=== PATIENT | female | born 1965 | race Caucasian/White ===

== ENCOUNTER 2020-01-18 12:49 | Emergency (ER) | payer BC ==
[~2020-01-18] VITALS: Ht 160 cm; Wt 72.7 kg
--- OUTSIDE RECORDS SUMMARY | 2020-01-18 12:52 | XMS REPORT | Summary of Care ---
Author Author [facility] Address [address] [place] [address] Phone Unavailable Care Team Providers Care Superintendent Storage Area Name Role Phone AYLA Phillips, CM Unavailable Unavailable FRANKY Phillips, AMANDA Unavailable Unavailable EMMA OQUENDO, LORRAINE Unavailable Unavailable KEVIN Phillips, GERSON Unavailable Unavailable VIRGILIO Phillips, COLTON Unavailable Unavailable QUAN Phillips, NATALIE Unavailable Unavailable AYLA FONG, CM Chung Unavailable Unavailable QUAN FONG, NATALIE Romeo Unavailable Unavailable VIRGILIO FONG, COLTON Chung Unavailable Unavailable SAMSON FOGN [place], REBECCA Salvador Unavailable Unavailable MAYCOL THRASHER, CHIARA Unavailable Unavailable KEVIN FONG, GERSON W Unavailable Unavailable Unavailable Unavailable Functional Status Name Dates Details Functional status health issues are not documented Status: Name Dates Details Cognitive status health issues are not documented Status: Problems Name Dates Details Gastrocnemius muscle tear (844.8, S86.119A) Status: Active Screen for colon cancer (V76.51, Z12.11) Status: Active Chronic back pain greater than 3 months duration (724.5, M54.9) Status: Active Abnormal EKG (794.31, R94.31) Status: Active Sebaceous hyperplasia of face (706.8, L73.8) Status: Active Solar lentigo (709.09, L81.4) Status: Active Age-related facial wrinkles (701.8, L90.8) Status: Active Ingrown toenail (703.0, L60.0) Status: Active Encounter for diabetic foot exam (250.00, E11.9) Status: Active Acid reflux (530.81, K21.9) Status: Active Abdominal bloating (787.3, R14.0) Status: Active Dense breast tissue on mammogram (793.89, R92.2) Status: Active Palpitations (785.1, R00.2) Status: Active Dyspareunia, female (625.0, N94.10) Status: Active Immunity status testing (V72.61, Z01.84) Status: Active BMI 24.0-24.9, adult (V85.1, Z68.24) Status: Active Fatty liver (571.8, K76.0) Status: Active Paresthesia (782.0, R20.2) Status: Active Persistent indigestion (536.8, K30) Status: Active Chronic constipation (564.00, K59.09) Status: Active Adnexal mass (625.8, N94.89) Status: Active Cystocele Status: Active Rectocele (618.04, N81.6) Status: Active Urinary hesitancy (788.64, R39.11) Status: Active Low back pain (724.2, M54.5) Status: Active Left cervical radiculopathy (723.4, M54.12) Status: Active Other hyperlipidemia (272.4, E78.49) Status: Active Other gastritis without hemorrhage (535.40, K29.60) Status: Active Need for influenza vaccination (V04.81, Z23) Status: Active Trigger middle finger of right hand (727.03, M65.331) Status: Active Trigger ring finger of right hand (727.03, M65.341) Status: Active Hyperlipemia, mixed (272.2, E78.2) Status: Active Well woman exam with routine gynecological exam (V72.31, Z01.419) Status: Active Cervical radiculopathy (723.4, M54.12) Status: Active Cubital tunnel syndrome on left (354.2, G56.22) Status: Active Carpal tunnel syndrome of left wrist (354.0, G56.02) Status: Active De Quervain's tenosynovitis, left (727.04, M65.4) Status: Active Type 2 diabetes mellitus without complication, without long-term current use of insulin (250.00, E11.9) Status: Active Malignant neoplasm of right breast in female, estrogen receptor positive, unspecified site of breast (174.9, C50.911) Status: Active Abnormal alkaline phosphatase test (790.5, R74.8) Status: Active ADD (attention deficit disorder) (314.00, F98.8) Status: Active Major depressive disorder in remission (296.25, F32.5) Status: Active Dental infection (522.4, K04.7) Status: Active Medications Name Dates Details Lisinopril 5 MG Oral Tablet TAKE 1 TABLET DAILY DIRECTED Quantity: 90 CM AGUILA M.D. * Start : 25-Nov-2014 Active BD Pen Needle Iza U/F 32G X 4 MM USE DIRECTED ONCE A DAY with Saxenda injection * Quantity: 1 Refills: 3 AMANDA WILKINS M.D. * Start : 04-Aug-2014 Active 100 Unit Box Atorvastatin Calcium 40 MG Oral Tablet TAKE ONE TABLET BY MOUTH EVERY NIGHT AT BEDTIME * Quantity: 90 Refills: 1 AMANDA WILKINS M.D. * Start : 08-Mar-2017 Active Linzess 145 MCG Oral Capsule TAKE 1 CAPSULE DAILY * Quantity: 30 Refills: 0 LORRAINE CARTER APRN * Start : 31-Jul-2017 Active tiZANidine HCl - 4 MG Oral Capsule TAKE 2 CAPSULE BEDTIME * Quantity: 180 Refills: 1 CM AGUILA M.D. * Start : 23-Aug-2017 Active B-12 TR 1000 MCG Oral Tablet Extended Release TAKE 1 TABLET DAILY DIRECTED. * Refills: 0 AMANDA WILKINS M.D. * Start : 24-Nov-2017 Active OneTouch Verio In Vitro Strip CHECK TWICE A DAY * Quantity: 2 Refills: 0 AMANDA WILKINS M.D. * Start : 24-Nov-2017 Active 100 Strip Box OneTouch Delica Lancets 33G Check BG 2x a day * Quantity: 200 Refills: 4 AMANDA WILKINS M.D. * Start : 24-Nov-2017 Active Synjardy XR 12.5-1000 MG Oral Tablet Extended Release 24 Hour TAKE 1 TABLET BY MOUTH DAILY; MAY INCREASE TO 2 TABLETS A DAY DIRECTED * Quantity: 60 Refills: 4 AMANDA WILKINS M.D. * Start : 24-Nov-2017 Active Saxenda 18 MG/3ML Subcutaneous Solution Pen-injector INJECT 3MG SUBCUTANEOUSLY ONCE A DAY * Quantity: 3 Refills: 1 AMANDA WILKINS M.D. * Start : 24-Nov-2017 Active 5 x 3 ML Pen Pen [place] 32G X 4 MM 1 a day * Quantity: 100 Refills: 4 AMANDA WILKINS M.D. * Start : 24-Nov-2017 Active Replens Vaginal Gel APPLY NEEDED. * Quantity: 12 Refills: 2 NATALIE GLASS M.D. * Start : 10-Jan-2018 Active 8 x 6.7 GM Box metroNIDAZOLE 0.75 % Vaginal Gel INSERT 1 APPLICATOR Bedtime x 5 nights * Quantity: 1 Refills: 0 NATALIE GLASS M.D. * Start : 16-Jan-2018 Active 70 GM Tube Letrozole 2.5 MG Oral Tablet TAKE 1 TABLET DAILY. * Refills: 0 AMANDA WILKINS M.D. * Start : 21-May-2018 Active Gabapentin 300 MG Oral Capsule 1 capsule tid * Refills: 0 AMANDA WILKINS M.D. * Start : 21-May-2018 Active Venlafaxine HCl ER 75 MG Oral Capsule Extended Release 24 Hour TAKE 3 CAPSULES DAILY * Quantity: 270 Refills: 2 GERSON BROWN M.D. * Start : 01-Jul-2019 Active buPROPion HCl ER (XL) 150 MG Oral Tablet Extended Release 24 Hour TAKE 1 TABLET DAILY. * Quantity: 90 Refills: 3 GERSON BROWN M.D. * Start : 01-Jun-2019 Active Vyvanse 60 MG Oral Capsule TAKE ONE CAPSULE BY MOUTH DAILY * Quantity: 30 Refills: 0 GERSON BROWN M.D. * Start : 17-Oct-2019 Active Ondansetron HCl - 8 MG Oral Tablet TAKE 1 TABLET Every twelve hours * Quantity: 15 Refills: 0 COLTON POOLE M.D. * Start : 05-Apr-2019 Active Ibuprofen 800 MG Oral Tablet TAKE 1 TABLET 3 TIMES DAILY PRN * Quantity: 270 Refills: 1 CM AGUILA M.D. * Start : 28-Jun-2019 Active Pantoprazole Sodium 20 MG Oral Tablet Delayed Release TAKE 1 TABLET DAILY. * Quantity: 90 Refills: 1 CM AGUILA M.D. * Start : 28-Jun-2019 Active Ondansetron HCl - 8 MG Oral Tablet TAKE 1 TABLET Every twelve hours * Quantity: 15 Refills: 0 COLTON POOLE M.D. * Start : 08-Aug-2019 Active Colace 100 MG Oral Capsule TAKE 1 CAPSULE 3 TIMES DAILY. * Quantity: 45 Refills: 0 JANE POOLE M.D.TON * Start : 08-Aug-2019 Active Allergies and Adverse Reactions Name Dates Details No Known Drug Allergies (Allergy) Status: Active Past Medical History Name Dates Details Chronic constipation (564.00, K59.09) Status: Active History of Depression (311, F32.9) Status: Resolved History of Diabetes mellitus, type 2 (250.00, E11.9) Status: Resolved History of fatty infiltration of liver (V12.79, Z87.19) Status: Resolved History of high cholesterol (V12.29, Z86.39) Status: Resolved History of malignant neoplasm of female breast (V10.3, Z85.3) Status: Resolved Procedures Procedure Dates Details History of Cholecystectomy Laparoscopic Completed History of Hallux Valgus (Bunion) Correction Completed History of Section Completed History of Tonsillectomy Completed History of Breast biopsy Completed History of Carpal tunnel surgery Completed History of Lumpectomy Completed History of Mastopexy Completed Immunization Name Dates Details Pneumococcal polysaccharide vaccine, 23 valent on: 03-Oct-2013 Fluzone Quadrivalent 0.5 ML Intramuscular Suspension Lot #: [id number] on: 24-Jul-2014 Influenza Lot #: [id number] on: 05-Jun-2015 Fluzone Quadrivalent 0.5 ML Intramuscular Suspension Lot #: [id number] on: 30-Jun-2017 Fluzone Quadrivalent 0.5 ML Intramuscular Suspension Prefilled Syringe Lot #: [id number] on: 25-Jun-2018 Fluzone Quadrivalent 0.5 ML Intramuscular Suspension Lot #: [id number] on: 28-Jun-2019 Family History Name Dates Details Family history of pancreatitis (V18.59, Z83.79) Comments: Family History Status: Active Name Dates Details Family history of Open spina bifida with hydrocephalus (741.00, Q05.4) Status: Active Name Dates Details Family history of hyperlipidemia (V18.19, Z83.438) Status: Active Family history of pancreatitis (V18.59, Z83.79) Status: Active Name Dates Details Family history of hypothyroidism (V18.19, Z83.49) Status: Active Social History Name Dates Details - Status: Name Dates Details Never smoker Vital Signs Date Test Result Details No Known Vitals to report Results Date Description Value Details Results not documented Plan of Care Name Dates Details Planned Observations Planned Goals not documented Planned Encounters Appointment; CM AGUILA M.D. On: 22-Nov-2019 13:45 Appointment; AMANDA WILKINS M.D. On: 29-Nov-2019 9:00 Instructions Name Dates Details Instructions not documented Encounters Appointment; BERNARDO LASSITER M.D. Encounter Diagnosis: Problem not documented On: 24-Nov-2017 9:20 Appointment; AMANDA WILKINS M.D. Encounter Diagnosis: Problem not documented On: 24-Nov-2017 11:00 Appointment; AMIRA HE RD Encounter Diagnosis: Problem not documented On: 27-Nov-2017 10:00 Appointment; GERSON BROWN M.D. Encounter Diagnosis: Problem not documented On: 05-Dec-2017 11:00 Appointment; BRANDY WASHINGTON M.D. Encounter Diagnosis: Problem not documented On: 10-Jan-2018 10:00 Appointment; NATALIE GLASS M.D. Encounter Diagnosis: Problem not documented On: 10-Jan-2018 10:00 Appointment; AMANDA WILKINS M.D. Encounter Diagnosis: Problem not documented On: 25-Jan-2018 10:00 Appointment; GERSON BROWN M.D. Encounter Diagnosis: Problem not documented On: 30-Jan-2018 10:00 Appointment; GERSON BROWN M.D. Encounter Diagnosis: Problem not documented On: 02-Apr-2018 11:30 Appointment; AMANDA WILKINS M.D. Encounter Diagnosis: Problem not documented On: 21-May-2018 10:00 Appointment; GERSON BROWN M.D. Encounter Diagnosis: Problem not documented On: 05-Jun-2018 10:30 Appointment; AMANDA WILKINS M.D. Encounter Diagnosis: Problem not documented On: 17-Aug-2018 11:00 Appointment; GERSON BROWN M.D. Encounter Diagnosis: Problem not documented On: 01-Oct-2018 9:00 Appointment; CM AGUILA M.D. Encounter Diagnosis: Problem not documented On: 16-Oct-2018 8:45 Appointment; AMANDA WILKINS M.D. Encounter Diagnosis: Problem not documented On: 12-Dec-2018 9:00 Appointment; GERSON BROWN M.D. Encounter Diagnosis: Problem not documented On: 21-Dec-2018 8:30 Appointment; COLTON POOLE M.D. Encounter Diagnosis: Problem not documented On: 10-Jan-2019 8:30 Appointment; NATALIE GLASS M.D. Encounter Diagnosis: Problem not documented On: 11-Jan-2019 10:45 Appointment; REBECCA DAVIES M.D. Encounter Diagnosis: Problem not documented On: 23-Jan-2019 14:45 Appointment; COLTON POOLE M.D. Encounter Diagnosis: Problem not documented On: 14-Mar-2019 9:30 Appointment; TAQUERIA FUNES Encounter Diagnosis: Problem not documented On: 22-Mar-2019 11:30 Appointment; REBECCA DAVIES M.D. Encounter Diagnosis: Problem not documented On: 27-Mar-2019 13:45 Appointment; AMANDA WILKINS M.D. Encounter Diagnosis: Problem not documented On: 28-Mar-2019 13:00 Appointment; GERSON BROWN M.D. Encounter Diagnosis: Problem not documented On: 29-Apr-2019 9:00 Appointment; CM AGUILA M.D. Encounter Diagnosis: Problem not documented On: 28-Jun-2019 16:00 Appointment; GERSON BROWN M.D. Encounter Diagnosis: Problem not documented On: 01-Jul-2019 9:00 Appointment; COLTON POOLE M.D. Encounter Diagnosis: Problem not documented On: 02-Jul-2019 10:30 Appointment; COLTON POOLE M.D. Encounter Diagnosis: Problem not documented On: 16-Jul-2019 8:30 Appointment; AMANDA WILKINS M.D. Encounter Diagnosis: Problem not documented On: 19-Jul-2019 9:00 Appointment; CM AGUILA M.D. Encounter Diagnosis: Problem not documented On: 22-Jul-2019 11:30 Appointment; COLTON POOLE M.D. Encounter Diagnosis: Problem not documented On: 08-Aug-2019 13:00 Appointment; GERSON BROWN M.D. Encounter Diagnosis: Problem not documented On: 13-Aug-2019 11:00 Appointment; COLTON POOLE M.D. Encounter Diagnosis: Problem not documented On: 22-Aug-2019 8:30 Appointment; COLTON POOLE M.D. Encounter Diagnosis: Problem not documented On: 03-Oct-2019 10:30
--- OUTSIDE RECORDS SUMMARY | 2020-01-18 12:52 | XMS REPORT | Summary of Care ---
Author Author [facility] Address [address] [place] [address] Phone Unavailable Care Team Providers Care Team Assembler Name Role Phone AYLA Phillips, CM Unavailable Unavailable FRANKY Phillips, AMANDA Unavailable Unavailable EMMA N.PFernando, LORRAINE Unavailable Unavailable KEVIN Phillips, GERSON Unavailable Unavailable VIRGILIO Phillips, COLTON Unavailable Unavailable QUAN Phillips, NATALIE Unavailable Unavailable AYLA FONG, CM Chung Unavailable Unavailable KEVIN FONG, GERSON W Unavailable Unavailable QUAN FONG, NATALIE Romeo Unavailable Unavailable VIRGILIO FONG, COLTON Chung Unavailable Unavailable SAMSON FONG [place], REBECCA Salvador Unavailable Unavailable MAYCOL THRASHER, CHIARA Unavailable Unavailable Unavailable Unavailable Functional Status Name [...] Active Chronic constipation (564.00, K59.09) Status: Active Cystocele Status: Active Rectocele (618.04, N81.6) Status: Active Adnexal mass (625.8, N94.89) Status: Active Urinary hesitancy (788.64, R39.11) Status: [...] Active Hyperlipemia, mixed (272.2, E78.2) Status: Active Cubital tunnel syndrome on left (354.2, G56.22) Status: Active Carpal tunnel syndrome of left wrist (354.0, G56.02) Status: Active De Quervain's tenosynovitis, left (727.04, M65.4) Status: Active Type 2 diabetes mellitus without complication, without long-term current use of insulin (250.00, E11.9) Status: Active Malignant neoplasm of right breast in female, estrogen receptor positive, unspecified site of breast (174.9, C50.911) Status: Active Well woman exam with routine gynecological exam (V72.31, Z01.419) Status: Active Cervical radiculopathy (723.4, M54.12) Status: Active Abnormal alkaline phosphatase test (790.5, [...] Start : 04-Aug-2014 Active 100 Unit Box B-12 TR 1000 MCG Oral Tablet Extended Release TAKE 1 TABLET DAILY DIRECTED. * Refills: 0 AMANDA WILKINS M.D. * Start : 24-Nov-2017 Active OneTouch Delica Lancets 33G Check BG 2x a day * Quantity: 200 Refills: 4 AMANDA WILKINS M.D. * Start : 24-Nov-2017 Active Replens Vaginal Gel APPLY NEEDED. * Quantity: 12 Refills: 2 NATALIE GLASS M.D. * Start : 10-Jan-2018 Active 8 x 6.7 GM Box Pen [place] 32G X 4 MM 1 a day * Quantity: 100 Refills: 4 AMANDA WILKINS M.D. * Start : 24-Nov-2017 Active Gabapentin 300 MG Oral Capsule 1 capsule tid * Refills: 0 AMANDA WILKINS M.D. * Start : 21-May-2018 Active Letrozole 2.5 MG Oral Tablet TAKE 1 TABLET DAILY. * Refills: 0 AMANDA WILKINS M.D. * Start : 21-May-2018 Active metroNIDAZOLE 0.75 % Vaginal Gel INSERT 1 APPLICATOR Bedtime x 5 nights * Quantity: 1 Refills: 0 NATALIE GLASS M.D. * Start : 16-Jan-2018 Active 70 GM Tube Linzess 145 MCG Oral Capsule TAKE 1 CAPSULE DAILY * Quantity: 30 Refills: 0 OBONYANO N.P., LORRAINE * Start : 31-Jul-2017 Active OneTouch Verio In Vitro Strip CHECK TWICE A DAY * Quantity: 2 Refills: 0 AMANDA WILKINS M.D. * Start : 24-Nov-2017 Active 100 Strip Box Venlafaxine HCl ER 75 MG Oral Capsule Extended Release 24 Hour TAKE 3 CAPSULES DAILY * Quantity: 270 Refills: 2 GERSON BROWN M.D. * Start : 01-Jul-2019 Active tiZANidine HCl - 4 MG Oral Capsule TAKE 2 CAPSULE BEDTIME * Quantity: 180 Refills: 1 CM AGUILA M.D. * Start : 23-Aug-2017 Active Saxenda 18 MG/3ML Subcutaneous Solution Pen-injector INJECT 3MG SUBCUTANEOUSLY ONCE A DAY * Quantity: 3 Refills: 1 AMANDA WILKINS M.D. * Start : 24-Nov-2017 Active 5 x 3 ML Pen Atorvastatin Calcium 40 MG Oral Tablet TAKE ONE TABLET BY MOUTH EVERY NIGHT AT BEDTIME * Quantity: 90 Refills: 1 AMANDA WILKINS M.D. * Start : 08-Mar-2017 Active Synjardy XR 12.5-1000 MG Oral Tablet Extended Release 24 Hour TAKE 1 TABLET BY MOUTH DAILY; MAY INCREASE TO 2 TABLETS A DAY DIRECTED * Quantity: 60 Refills: 4 AMANDA WILKINS M.D. * Start : 24-Nov-2017 Active Ondansetron HCl - 8 MG Oral Tablet TAKE 1 TABLET Every twelve hours * Quantity: 15 Refills: 0 COLTON POOLE M.D. * Start : 05-Apr-2019 Active buPROPion HCl ER (XL) 150 MG Oral Tablet Extended Release 24 Hour TAKE 1 TABLET DAILY. * Quantity: 90 Refills: 3 GERSON BROWN M.D. * Start : 01-Jun-2019 Active Ibuprofen 800 MG Oral Tablet TAKE [...] TIMES DAILY. * Quantity: 45 Refills: 0 COLTON POOLE M.D. * Start : 08-Aug-2019 Active Vyvanse 60 MG Oral Capsule TAKE ONE CAPSULE BY MOUTH DAILY * Quantity: 30 Refills: 0 GERSON BROWN M.D. * Start : 17-Oct-2019 Active Allergies and Adverse Reactions Name Dates [...] Z85.3) Status: Resolved Procedures Procedure Dates Details Post Op Promis 29 Survey Date: 14-Aug-2019 History of Cholecystectomy Laparoscopic Completed History of Hallux Valgus (Bunion) Correction Completed History of Section Completed History of Tonsillectomy Completed History of Breast biopsy Completed History of Carpal tunnel surgery Completed History of Lumpectomy Completed History of Mastopexy Completed Immunization Name Dates Details Pneumococcal polysaccharide vaccine, 23 valent on: 03-Oct-2013 Fluzone Quadrivalent 0.5 ML Intramuscular Suspension Lot #: [id number] on: 24-Jul-2014 Influenza Lot #: [id number] on: 05-Jun-2015 Fluzone Quadrivalent 0.5 ML Intramuscular Suspension Lot #: [id number] on: 30-Jun-2017 Fluzone Quadrivalent 0.5 ML Intramuscular Suspension Prefilled Syringe Lot #: [id number] on: 25-Jun-2018 Fluzone Quadrivalent 0.5 ML Intramuscular Suspension Lot #: [id number] on: 28-Jun-2019 Family History Name Dates Details [...] Planned Goals not documented Planned Encounters Appointment; GERSON BROWN M.D. On: 23-Oct-2019 8:30 Appointment; AMANDA WILKINS M.D. On: 29-Nov-2019 9:00 Instructions Name Dates Details Instructions not documented Encounters Appointment; MIKE CACERES Encounter Diagnosis: Problem not documented On: 20-Oct-2017 15:30 Appointment; JAMSHIDGRICELDASHELBY PADILLA Encounter Diagnosis: Problem not documented On: 13-Nov-2017 13:00 Appointment; BERNARDO LASISTER M.D. Encounter Diagnosis: Problem not documented On: [...]
--- OUTSIDE RECORDS SUMMARY | 2020-01-18 12:52 | XMS REPORT | Summary of Care ---
Author Author [facility] Address [address] [place] [address] Phone Unavailable Care Team Providers Care Transmission And Coordination Engineer Name Role Phone AYLA Phillips, CM Unavailable Unavailable FRANKY Phillips, AMANDA Unavailable Unavailable EMMA OQUENDO, LORRAINE Unavailable Unavailable KEVIN Phillips, GERSON Unavailable Unavailable VIRGILIO Phillips, COLTON Unavailable Unavailable QUAN Phillips, NATALIE Unavailable Unavailable AYLA FONG, CM Chung Unavailable Unavailable QUAN FONG, NATALIE Romeo Unavailable Unavailable VIRGILIO FONG, COLTON Chung Unavailable Unavailable SAMSON FONG [place], REBECCA Salvador Unavailable Unavailable MAYCOL THRASHER, CHIARA [...] AGUILA M.D. * Start : 25-Nov-2014 Active Ondansetron HCl - 8 MG Oral Tablet TAKE 1 TABLET Every twelve hours * Quantity: 15 Refills: 0 COLTON POOLE M.D. * Start : 05-Apr-2019 Active Ondansetron HCl - 8 MG Oral Tablet TAKE 1 TABLET Every twelve hours * Quantity: 15 Refills: 0 COLTON POOLE M.D. * Start : 08-Aug-2019 Active Colace 100 MG Oral Capsule TAKE 1 CAPSULE 3 TIMES DAILY. * Quantity: 45 Refills: 0 COLTON POOLE M.D. * Start : 08-Aug-2019 Active OneTouch Delica Lancets 33G Check BG 2x a day * Quantity: 200 Refills: 4 AMANDA WILKINS M.D. * Start : 24-Nov-2017 Active tiZANidine HCl - 4 MG Oral Capsule TAKE 2 CAPSULE BEDTIME * Quantity: 180 Refills: 1 CM AGUILA M.D. * Start : 23-Aug-2017 Active BD Pen Needle Iza U/F 32G X 4 MM USE DIRECTED ONCE A DAY with Saxenda injection * Quantity: 1 Refills: 3 AMANDA WILKINS M.D. * Start : 04-Aug-2014 Active 100 Unit Box Pantoprazole Sodium 20 MG Oral Tablet Delayed Release TAKE 1 TABLET DAILY. * Quantity: 90 Refills: 1 CM AGUILA M.D. * Start : 28-Jun-2019 Active Ibuprofen 800 MG Oral Tablet TAKE 1 TABLET 3 TIMES DAILY PRN * Quantity: 270 Refills: 1 CM AGUILA M.D. * Start : 28-Jun-2019 Active buPROPion HCl ER (XL) 150 MG Oral Tablet Extended Release 24 Hour TAKE 1 TABLET DAILY. * Quantity: 90 Refills: 3 GERSON BROWN M.D. * Start : 01-Jun-2019 Active Atorvastatin Calcium 40 MG Oral Tablet TAKE ONE TABLET BY MOUTH EVERY NIGHT AT BEDTIME * Quantity: 90 Refills: 1 AMANDA WILKINS M.D. * Start : 08-Mar-2017 Active Linzess 145 MCG Oral Capsule TAKE 1 CAPSULE DAILY * Quantity: 30 Refills: 0 LORRAINE CARTER APRN * Start : 31-Jul-2017 Active B-12 TR 1000 MCG Oral Tablet [...] Active 5 x 3 ML Pen Pen [place] 32G X 4 MM 1 a day * Quantity: 100 Refills: 4 AMANDA WILKINS M.D. * Start : 24-Nov-2017 Active Venlafaxine HCl ER 75 MG Oral Capsule Extended Release 24 Hour TAKE 3 CAPSULES DAILY * Quantity: 270 Refills: 2 GERSON BROWN M.D. * Start : 01-Jul-2019 Active Gabapentin 300 MG Oral Capsule 1 [...] Start : 16-Jan-2018 Active 70 GM Tube Replens Vaginal Gel APPLY NEEDED. * Quantity: 12 Refills: 2 NATALIE GLASS M.D. * Start : 10-Jan-2018 Active 8 x 6.7 GM Box Vyvanse 60 MG Oral Capsule TAKE ONE CAPSULE BY MOUTH DAILY * Quantity: 30 Refills: 0 GERSON BROWN M.D. * Start : 17-Oct-2019 Active OneTouch Verio In Vitro Strip CHECK TWICE A DAY * Quantity: 2 Refills: 0 AMANDA WILKINS M.D. Start : 24-Nov-2017 Active 100 Strip Box Allergies and Adverse Reactions Name Dates Details [...] Quadrivalent 0.5 ML Intramuscular Suspension Lot #: [id number] on: 24-Jul-2014 Influenza Lot #: [id number] on: 05-Jun-2015 Fluzone Quadrivalent 0.5 ML Intramuscular Suspension Lot #: [id number] on: 30-Jun-2017 Fluzone Quadrivalent 0.5 ML Intramuscular Suspension Prefilled Syringe Lot #: [id number] on: 25-Jun-2018 Fluzone Quadrivalent 0.5 ML Intramuscular Suspension Lot #: [id number] on: 28-Jun-2019 Family History Name Dates Details [...]
--- OUTSIDE RECORDS SUMMARY | 2020-01-18 12:52 | XMS REPORT | Summary of Care ---
Author Author KEVIN Phillips, GERSON Membreno Unknown Address Unknown Phone Unavailable Care Team Providers Care Events Manager Name Role Phone AYLA Phillips, CM Unavailable Unavailable FRANKY Phillips, AMANDA Unavailable Unavailable EMMA OQUENDO, LORRAINE Unavailable Unavailable KEVIN Phillips, GERSON Unavailable Unavailable VIRGILIO Phillips, COLTON Unavailable Unavailable QUAN Phillips, NATALIE Unavailable Unavailable AYLA FONG, CM Chung Unavailable Unavailable QUAN FONG, NATALIE Romeo Unavailable Unavailable VIRGILIO FONG, COLTON S Unavailable Unavailable SAMSON FONG [place], REBECCA L Unavailable Unavailable MAYCOL THRASHER, CHIARA Unavailable Unavailable [...] Active 5 x 3 ML Pen Pen [place] 32G X 4 MM 1 a day [...] 0 GERSON BROWN M.D. * Start : 07-Dec-2018 Active Ondansetron HCl - 8 MG Oral [...] POOLE M.D. * Start : 08-Aug-2019 Active Allergies and [...] Quadrivalent 0.5 ML Intramuscular Suspension Lot #: [id number] on: 24-Jul-2014 Influenza Lot #: [id number] on: 05-Jun-2015 Fluzone Quadrivalent 0.5 ML Intramuscular Suspension Lot #: [id number] on: 30-Jun-2017 Fluzone Quadrivalent 0.5 ML Intramuscular Suspension Prefilled Syringe Lot #: [id number] on: 25-Jun-2018 Fluzone Quadrivalent 0.5 ML Intramuscular Suspension Lot #: [id number] on: 28-Jun-2019 Family History Name Dates Details [...] Appointment; AMANDA WILKINS M.D. On: 29-Nov-2019 9:00 Appointment; GERSON BROWN M.D. On: 06-Dec-2019 10:00 Interventions Provided Medication Changes* Vyvanse 60 MG Oral Capsule - Renew Instructions Name Dates Details Instructions not documented [...] Problem not documented On: 08-Aug-2019 13:00 Appointment; AHMED, MOHAMMED, M.D. Encounter Diagnosis: Problem not documented On: 13-Aug-2019 11:00 Appointment; COLTON POOLE M.D. Encounter Diagnosis: Problem not documented On: 22-Aug-2019 8:30 Appointment; COLTON POOLE M.D. Encounter Diagnosis: Problem not documented On: 03-Oct-2019 10:30
--- OUTSIDE RECORDS SUMMARY | 2020-01-18 12:52 | XMS REPORT ---
Author Author [facility] Address Unknown Phone Unavailable Care Team Providers Care Surgical Dental Assistant Name Role Phone Unavailable Unavailable Problems This patient has no known problems. Allergies, Adverse Reactions, Alerts This patient has no known allergies or adverse reactions. Medications This patient has no known medications. Encounters Start Date/Time End Date/Time Encounter Type Admission Type Attending Clinicians Care Facility Care Department Encounter ID 2020-01-15 12:21:00 2020-01-15 12:21:00 Outpatient [id number] 2019-08-08 11:20:00 2019-08-08 11:20:00 Outpatient [facility]BL [id number]
--- OUTSIDE RECORDS SUMMARY | 2020-01-18 12:53 | XMS REPORT | Summary of Care ---
Author Author [facility] Address [address] [place] [address] Phone Unavailable Care Team Providers Care Director Of Diagnostic Imaging Name Role Phone AYLA Phillips, CM Unavailable Reanna WILKINS M.D., AMANDA Unavailable Unavailable EMMA OQUENDO, LORRAINE Unavailable Unavailable KEVIN Phillips, GERSON Unavailable Unavailable VIRGILIO Phillips, COLTON Unavailable Reanna GLASS M.D., NATALIE Unavailable Unavailable AYLA FONG, CM Chung Unavailable Unavailable KEVIN FONG, GERSON W Unavailable Unavailable Christian DDS, Rebecca Unavailable Unavailable QUAN FONG, NATALIE Romeo Unavailable Unavailable VIRGILIO FONG, COLTON Chung Unavailable Unavailable SAMSON FONG [place], REBECCA Salvador Unavailable Unavailable MAYCOL THRASHER, CHIARA [...] cervical radiculopathy (723.4, M54.12) Status: Active Other gastritis without hemorrhage (535.40, [...] Quervain's tenosynovitis, left (727.04, M65.4) Status: Active Malignant neoplasm of right breast in female, estrogen receptor positive, unspecified site of breast (174.9, C50.911) Status: Active Abnormal alkaline phosphatase test (790.5, R74.8) Status: Active ADD (attention deficit disorder) (314.00, F98.8) Status: Active Major depressive disorder in remission (296.25, F32.5) Status: Active Dental infection (522.4, K04.7) Status: Active Type 2 diabetes mellitus without complication, without long-term current use of insulin (250.00, E11.9) Status: Active Other hyperlipidemia (272.4, E78.49) Status: Active Medications Name Dates Details Lisinopril [...] Active 5 x 3 ML Pen Pen [place] 32G X 4 MM 1 a day [...] Quadrivalent 0.5 ML Intramuscular Suspension Lot #: [id number] on: 24-Jul-2014 Influenza Lot #: [id number] on: 05-Jun-2015 Fluzone Quadrivalent 0.5 ML Intramuscular Suspension Lot #: [id number] on: 30-Jun-2017 Fluzone Quadrivalent 0.5 ML Intramuscular Suspension Prefilled Syringe Lot #: [id number] on: 25-Jun-2018 Fluzone Quadrivalent 0.5 ML Intramuscular Suspension Lot #: [id number] on: 28-Jun-2019 Family History Name Dates Details [...] Details - Status: Name Dates Details Never smoked tobacco (finding) Vital Signs Date Test Result Details No Known Vitals to report Results Date Description Value Details Results not documented Plan of Care Name Dates Details Planned Observations Planned Goals not documented Planned Encounters Appointment; GERSON BROWN M.D. On: 06-Dec-2019 10:00 Instructions Name Dates Details Instructions not documented Encounters Appointment; GERSON BROWN M.D. Encounter Diagnosis: Problem [...] not documented On: 01-Oct-2018 9:00 Appointment; CM AGIULA M.D. Encounter Diagnosis: Problem not documented On: [...] Problem not documented On: 27-Mar-2019 13:45 Appointment; MAANDA WILKINS M.D. Encounter Diagnosis: Problem not documented [...] Diagnosis: Problem not documented On: 03-Oct-2019 10:30 Appointment; AMANDA WILKINS M.D. Encounter Diagnosis: Problem not documented On: 29-Nov-2019 9:00
--- OUTSIDE RECORDS SUMMARY | 2020-01-18 12:53 | XMS REPORT | Summary of Care ---
Author Author [facility] Address [address] [place] [address] Phone Unavailable Care Team Providers Care Special Events Planner Name Role Phone AYLA Phillips, CM Unavailable Unavailable FRANKY Phillips, AMANDA Unavailable Unavailable EMMA OQUENDO, LORRAINE Unavailable Unavailable KEVIN Phillips, GERSON Unavailable Unavailable VIRGILIO Phillips, COLTON Unavailable Unavailable QUAN Phillips, NATALIE Unavailable Unavailable AYLA FONG, CM Chung Unavailable Unavailable QUAN FONG, NATALIE Romeo Unavailable Unavailable VIRGILIO FONG, COLTON Chung Unavailable Unavailable SAMSON FONG [place], REBECCA Salvador Unavailable Unavailable MAYCOL THRASHER, CHIARA [...] Active Urinary hesitancy (788.64, R39.11) Status: Active Trigger middle finger of right hand (727.03, M65.331) Status: Active Trigger ring finger of right hand (727.03, M65.341) Status: Active Hyperlipemia, mixed (272.2, E78.2) Status: Active Cubital tunnel syndrome on left (354.2, G56.22) Status: Active Carpal tunnel syndrome of left wrist (354.0, G56.02) Status: Active ADD (attention deficit disorder) (314.00, F98.8) Status: Active Major depressive disorder in remission (296.25, F32.5) Status: Active Malignant neoplasm of right breast in female, estrogen receptor positive, unspecified site of breast (174.9, C50.911) Status: Active Type 2 diabetes mellitus without complication, without long-term current use of insulin (250.00, E11.9) Status: Active De Quervain's tenosynovitis, left (727.04, M65.4) Status: Active Cervical radiculopathy (723.4, M54.12) Status: Active Well woman exam with routine gynecological exam (V72.31, Z01.419) Status: Active Need for influenza vaccination (V04.81, Z23) Status: Active Other gastritis without hemorrhage (535.40, K29.60) Status: Active Other hyperlipidemia (272.4, E78.49) Status: Active Dental infection (522.4, K04.7) Status: Active Abnormal alkaline phosphatase test (790.5, R74.8) Status: Active Left cervical radiculopathy (723.4, M54.12) Status: Active Low back pain (724.2, M54.5) Status: Active Medications Name Dates Details Lisinopril 5 MG Oral Tablet TAKE 1 TABLET DAILY DIRECTED Quantity: 90 CM AGUILA M.D. * Start : 25-Nov-2014 Active BD Pen Needle Iza U/F 32G X 4 MM USE DIRECTED ONCE A DAY with Saxenda injection * Quantity: 1 Refills: 3 AMANDA WILKINS M.D. * Start : 04-Aug-2014 Active 100 Unit Box Linzess 145 MCG Oral Capsule TAKE 1 [...] WILKINS M.D. * Start : 24-Nov-2017 Active Vyvanse 60 MG Oral Capsule TAKE [...] POOLE M.D. * Start : 08-Aug-2019 Active Saxenda 18 MG/3ML Subcutaneous Solution Pen-injector INJECT 3MG SUBCUTANEOUSLY ONCE A DAY * Quantity: 3 Refills: 1 AMANDA WILKINS M.D. * Start : 24-Nov-2017 Active 5 x 3 ML Pen Synjardy XR 12.5-1000 MG Oral Tablet Extended Release 24 Hour TAKE 1 TABLET BY MOUTH DAILY; MAY INCREASE TO 2 TABLETS A DAY DIRECTED * Quantity: 60 Refills: 4 AMANDA WILKINS M.D. * Start : 24-Nov-2017 Active metroNIDAZOLE 0.75 % Vaginal Gel INSERT 1 APPLICATOR Bedtime x 5 nights * Quantity: 1 Refills: 0 NATALIE GLASS M.D. * Start : 16-Jan-2018 Active 70 GM Tube Replens Vaginal Gel APPLY NEEDED. * Quantity: 12 Refills: 2 NATALIE GLASS M.D. * Start : 10-Jan-2018 Active 8 x 6.7 GM Box OneTouch Delica Lancets 33G Check BG 2x a day * Quantity: 200 Refills: 4 AMANDA WILKINS M.D. * Start : 24-Nov-2017 Active OneTouch Verio In Vitro Strip CHECK TWICE A DAY * Quantity: 2 Refills: 0 AMANDA WILKINS M.D. * Start : 24-Nov-2017 Active 100 Strip Box Atorvastatin Calcium 40 MG Oral Tablet TAKE ONE TABLET BY MOUTH EVERY NIGHT AT BEDTIME * Quantity: 90 Refills: 1 AMANDA WILKINS M.D. * Start : 08-Mar-2017 Active Pen [place] 32G X 4 MM 1 a day * Quantity: 100 Refills: 4 AMANDA WILKINS M.D. * Start : 24-Nov-2017 Active Letrozole 2.5 MG Oral Tablet TAKE [...] TABLET DAILY. * Quantity: 90 Refills: 3 KEVIN Phillips GERSON * Start : 01-Jun-2019 Active Allergies and Adverse Reactions Name Dates [...] Quadrivalent 0.5 ML Intramuscular Suspension Lot #: [id number] on: 24-Jul-2014 Influenza Lot #: [id number] on: 05-Jun-2015 Fluzone Quadrivalent 0.5 ML Intramuscular Suspension Lot #: [id number] on: 30-Jun-2017 Fluzone Quadrivalent 0.5 ML Intramuscular Suspension Prefilled Syringe Lot #: [id number] on: 25-Jun-2018 Fluzone Quadrivalent 0.5 ML Intramuscular Suspension Lot #: [id number] on: 28-Jun-2019 Family History Name Dates Details [...]
--- OUTSIDE RECORDS SUMMARY | 2020-01-18 12:53 | XMS REPORT | Summary of Care ---
Author Author FRANKY Phillips, AMANDA Membreno Unknown Address Unknown Phone Unavailable Care Team Providers Care Surgical Scrub Technician Name Role Phone AYLA Phillips, CM Unavailable Unavailable FRANKY Phillips, AMANDA Unavailable Unavailable EMMA OQUENDO, LORRAINE Unavailable Unavailable KEVIN Phillips, GERSON Unavailable Unavailable QUAN Phillips, NATALIE Unavailable Unavailable AYLA FONG, CM Chung Unavailable Unavailable FRANKY FONG, AMANDA Unavailable Unavailable KEVIN FONG, GERSON W Unavailable Unavailable Christian DDS, Rebecca Unavailable Unavailable QUAN FONG, NATALIE Romeo Unavailable Unavailable VIRGILIO FONG, COLTON S Unavailable Unavailable SAMSON FONG [place], REBECCA L Unavailable Unavailable MAYCOL LEYVA-Sav, CHIARA Unavailable Unavailable Unavailable Unavailable Functional Status [...] Active Other hyperlipidemia (272.4, E78.49) Status: Active Vitamin D insufficiency (268.9, E55.9) Status: Active Medications Name Dates Details Lisinopril [...] Oral Tablet Extended Release 24 Hour TAKE 2 TABLETS A DAY DIRECTED * Quantity: 60 Refills: 4 AMANDA WILKINS M.D. * Start : 24-Nov-2017 Active Saxenda 18 MG/3ML Subcutaneous Solution Pen-injector INJECT 3MG SUBCUTANEOUSLY ONCE A DAY * Quantity: 3 Refills: 1 AMANDA WILKINS M.D. * Start : 24-Nov-2017 Active 5 x 3 ML Pen Pen [place] 32G X 4 MM 1 a day [...] BROWN M.D. * Start : 07-Dec-2018 Active Ibuprofen 800 MG Oral Tablet TAKE 1 TABLET 3 TIMES DAILY PRN * Quantity: 270 Refills: 1 CM AGUILA M.D. * Start : 28-Jun-2019 Active Pantoprazole Sodium 20 MG Oral Tablet Delayed Release TAKE 1 TABLET DAILY. * Quantity: 90 Refills: 1 CM AGUILA M.D. * Start : 28-Jun-2019 Active Vitamin D3 Super Strength 50 MCG (2000 UT) Oral Tablet TAKE ONE (1) TABLET(S) BY MOUTH ONCE A DAY. * Quantity: 90 Refills: 3 AMANDA WILKINS M.D. * Start : 29-Nov-2019 Active Vitamin D (Ergocalciferol) 1.25 MG (45949 UT) Oral Capsule 1 capsule weekly per oncologist * Refills: 0 AMANDA WILKINS M.D. * Start : 29-Nov-2019 Active Allergies and Adverse Reactions Name Dates [...] Quadrivalent 0.5 ML Intramuscular Suspension Lot #: [id number] on: 24-Jul-2014 Influenza Lot #: [id number] on: 05-Jun-2015 Fluzone Quadrivalent 0.5 ML Intramuscular Suspension Lot #: [id number] on: 30-Jun-2017 Fluzone Quadrivalent 0.5 ML Intramuscular Suspension Prefilled Syringe Lot #: [id number] on: 25-Jun-2018 Fluzone Quadrivalent 0.5 ML Intramuscular Suspension Lot #: [id number] on: 28-Jun-2019 Family History Name Dates Details [...] (finding) Vital Signs Date Test Result Details [id number] Systolic blood pressure 120 mm[Hg] Status: Comments: Location: LUE; Position: Sitting Diastolic blood pressure 74 mm[Hg] Status: Comments: Location: E; Position: Sitting :36 Systolic blood pressure 124 mm[Hg] Status: Diastolic blood pressure 74 mm[Hg] Status: :07 Systolic blood pressure 152 mm[Hg] Status: Comments: Location: LUE; Position: Sitting Diastolic blood pressure 88 mm[Hg] Status: Comments: Location: E; Position: Sitting Body height 63 in Status: Weight 158.4375 lb Status: Body mass index (BMI) [Ratio] 28.07 kg/m2 Status: Body surface area Derived from formula 1.75 m2 Status: Heart Rate 87 /min Status: Results Date Description Value Details :10 [O] Lipid Panel (In Office) CHOLESTEROL, TOTAL 236 HDL CHOLESTEROL 59 TRIGLYCERIDES 116 LDL-CHOLESTEROL 154 NON HDL CHOLESTEROL 177 T. Chol/HDL Ratio 4.0 GLUCOSE 91 :11 Glucose (Point of Care In Office) Glucose POC Lifescan 102 :11 [O] Hemoglobin A1c (in office) HEMOGLOBIN A1c 5.8 Plan of Care Name Dates Details Planned Observations Planned Goals not documented Planned Encounters Appointment; GERSON BROWN M.D. On: 06-Dec-2019 10:00 Appointment; AMANDA WILKINS M.D. On: 20-Mar-2020 9:00 Interventions Provided Medication Changes* Atorvastatin Calcium 40 MG Oral Tablet - Renew * BD Pen Needle Iza U/F 32G X 4 MM - Renew * Saxenda 18 MG/3ML Subcutaneous Solution Pen-injector - Renew * Synjardy XR 12.5-1000 MG Oral Tablet Extended Release 24 Hour - Renew Labs/Procedures/Imaging* [O] Hemoglobin A1c (in office); Done: 29 Nov 2019 * [O] Lipid Panel (In Office); Done: 29 Nov 2019 * Glucose (Point of Care In Office); Done: 29 Nov 2019 Discussion/Summary* A1c okay. Continue regimen. Discussed the importance of DM control and its metabolic and vascular complications. Stressed the importance of consistent MNT and med compliance in DM control * Continue to do SMBG. * Exercise encouraged * Take medicine. MNT reiterated. Discussed the importance of Lipid control. * She is on weekly Vit D per her oncologist * Spent 15/25 min counseling Instructions Name Dates Details Instructions not documented [...]
--- OUTSIDE RECORDS SUMMARY | 2020-01-18 12:53 | XMS REPORT | Summary of Care ---
Author Author [facility] Address [address] [place] [address] Phone Unavailable Care Team Providers Care Band Splitter Name Role Phone AYLA Phillips, CM Unavailable [...] FONG, COLTON Chung Unavailable Unavailable SAMSON FONG MD, REBECCA Salvador Unavailable Unavailable MAYCOL THRASHER, CHIARA [...] Active 5 x 3 ML Pen Pen [place] 32G X 4 MM 1 a day * Quantity: 100 Refills: 4 AMANDA WILKINS M.D. * Start : 24-Nov-2017 Active Replens Vaginal Gel APPLY NEEDED. * Quantity: 12 Refills: 2 NATALIE GLASS M.D. * Start : 10-Jan-2018 Active 8 x 6.7 GM Box metroNIDAZOLE 0.75 % Vaginal Gel INSERT 1 APPLICATOR Bedtime x 5 nights * Quantity: 1 Refills: 0 NAATLIE GLASS M.D. * Start : 16-Jan-2018 Active [...] 29-Nov-2019 Active Vitamin D (Ergocalciferol) 1.25 MG (47529 UT) Oral Capsule 1 capsule weekly per oncologist * Refills: 0 AMANDA WILKINS M.D. Start : 29-Nov-2019 Active Allergies and Adverse [...] Quadrivalent 0.5 ML Intramuscular Suspension Lot #: [id number] on: 24-Jul-2014 Influenza Lot #: [id number] on: 05-Jun-2015 Fluzone Quadrivalent 0.5 ML Intramuscular Suspension Lot #: [id number] on: 30-Jun-2017 Fluzone Quadrivalent 0.5 ML Intramuscular Suspension Prefilled Syringe Lot #: [id number] on: 25-Jun-2018 Fluzone Quadrivalent 0.5 ML Intramuscular Suspension Lot #: [id number] on: 28-Jun-2019 Family History Name Dates Details [...] (finding) Vital Signs Date Test Result Details [id number] Systolic blood pressure 120 mm[Hg] Status: Comments: Location: LUE; Position: Sitting Diastolic blood pressure 74 mm[Hg] Status: Comments: Location: LUE; Position: Sitting :36 Systolic blood pressure 124 mm[Hg] Status: Diastolic blood pressure 74 mm[Hg] Status: :07 Systolic blood pressure 152 mm[Hg] Status: Comments: Location: LUE; Position: Sitting Diastolic blood pressure 88 mm[Hg] Status: Comments: Location: LUE; Position: Sitting Body height 63 in Status: [...] Appointment; AMANDA WILKINS M.D. On: 20-Mar-2020 9:00 Instructions Name Dates Details Instructions not [...]
--- OUTSIDE RECORDS SUMMARY | 2020-01-18 12:53 | XMS REPORT | Summary of Care ---
Author Author FRANKY Phillips, AMANDA Membreno Unknown Address Unknown Phone Unavailable Care Team Providers Care Revenue Agent Name Role Phone AYLA Phillips, CM Unavailable Unavailable FRANKY Phillips, AMANDA Unavailable Unavailable EMMA OQUENDO, LORRAINE Unavailable Unavailable KEVIN Phillips, GERSON Unavailable Unavailable VIRGILIO Phillips, COLTON Unavailable Unavailable QUAN Phillips, NATALIE Unavailable Unavailable AYLA FONG, CM Chung Unavailable Unavailable Christian DDS, Rebecca Unavailable Unavailable QUAN FONG, NATALIE Romeo Unavailable Unavailable VIRGILIO FONG, COLTON S Unavailable Unavailable SAMSON FONG [place], REBECCA L Unavailable Unavailable MAYCOL THRASHER, CHIARA [...] WILKINS M.D. * Start : 24-Nov-2017 Active OsvaldoTouch Verio In Vitro Strip CHECK TWICE A DAY * Quantity: 2 Refills: 0 AMANDA WILKINS M.D. * Start : 24-Nov-2017 Active 100 Strip Box OneTouch [place] Lancets 33G Check BG 2x a day [...] Active 5 x 3 ML Pen Pen [place] 32G X 4 MM 1 a day [...] DAILY PRN * Quantity: 270 Refills: 1 MC AGUILA M.D. * Start : 28-Jun-2019 Active [...] Quadrivalent 0.5 ML Intramuscular Suspension Lot #: [id number] on: 24-Jul-2014 Influenza Lot #: [id number] on: 05-Jun-2015 Fluzone Quadrivalent 0.5 ML Intramuscular Suspension Lot #: [id number] on: 30-Jun-2017 Fluzone Quadrivalent 0.5 ML Intramuscular Suspension Prefilled Syringe Lot #: [id number] on: 25-Jun-2018 Fluzone Quadrivalent 0.5 ML Intramuscular Suspension Lot #: [id number] on: 28-Jun-2019 Family History Name Dates Details [...] Planned Goals not documented Planned Encounters Appointment; AMANDA WILKINS M.D. On: 29-Nov-2019 9:00 Appointment; GERSON BROWN M.D. On: 06-Dec-2019 10:00 Interventions Provided Discussion/Summary* Discussed the importance of DM control and its metabolic and vascular complications. Stressed the importance of consistent MNT and med compliance in DM control * do SMBG. * Exercise encouraged * Take medicine. MNT reiterated. Discussed the importance of Lipid control. Instructions Name Dates Details Instructions not documented Encounters Appointment; AMIRA HE RD Encounter Diagnosis: Problem [...]
--- OUTSIDE RECORDS SUMMARY | 2020-01-18 12:54 | XMS REPORT | Summary of Care ---
Author Author Yobany Pruitt LMSW, Soledad Organization Unknown Address Unknown Phone Unavailable Care Team Providers Care Needle Board Repairer Name Role Phone AYLA Phillips, CM Unavailable Unavailable FRANKY Phillips, AMANDA Unavailable Unavailable EMMA OQUENDO, LORRAINE Unavailable Unavailable KEVIN Phillips, MOHAMMJUAN Unavailable Unavailable Yobany Pruitt LMSW, Soledad Unavailable Unavailable QUAN Phillips, NATALIE Unavailable Unavailable AYLA FONG, CM Chung Unavailable Unavailable FRANKY FONG, AMANDA Unavailable Unavailable KEVIN FONG, GERSON W Unavailable Unavailable Christian DDS, Rebecca Unavailable Unavailable QUAN FONG, NATALIE Romeo Unavailable Unavailable VIRGILIO FONG, COLTON S Unavailable Unavailable SAMSON FONG [place], REBECCA Salvador Unavailable Unavailable MAYCOL THRASHER, CHIARA [...] alkaline phosphatase test (790.5, R74.8) Status: Active Dental infection (522.4, K04.7) Status: Active Type 2 diabetes mellitus without complication, without long-term current use of insulin (250.00, E11.9) Status: Active Other hyperlipidemia (272.4, E78.49) Status: Active Vitamin D insufficiency (268.9, E55.9) Status: Active ADD (attention deficit disorder) (314.00, F98.8) Status: Active Major depressive disorder in remission (296.25, F32.5) Status: Active Medications Name Dates Details Lisinopril [...] Active 5 x 3 ML Pen Pen [place] 32G X 4 MM 1 a day [...] 2 GERSON BROWN M.D. * Start : 16-Jul-2018 Active buPROPion HCl ER (XL) 150 MG Oral Tablet Extended Release 24 Hour TAKE 1 TABLET DAILY. * Quantity: 90 Refills: 3 GERSON BROWN M.D. * Start : 20-Aug-2018 Active Vyvanse 60 MG Oral Capsule TAKE ONE CAPSULE BY MOUTH DAILY * Quantity: 30 Refills: 0 GERSON BROWN M.D. * Start : 15-Dec-2019 Active Ibuprofen 800 MG Oral Tablet TAKE [...] 29-Nov-2019 Active Vitamin D (Ergocalciferol) 1.25 MG (97130 UT) Oral Capsule 1 capsule weekly per [...] Quadrivalent 0.5 ML Intramuscular Suspension Lot #: [id number] on: 24-Jul-2014 Influenza Lot #: [id number] on: 05-Jun-2015 Fluzone Quadrivalent 0.5 ML Intramuscular Suspension Lot #: [id number] on: 30-Jun-2017 Fluzone Quadrivalent 0.5 ML Intramuscular Suspension Prefilled Syringe Lot #: [id number] on: 25-Jun-2018 Fluzone Quadrivalent 0.5 ML Intramuscular Suspension Lot #: [id number] on: 28-Jun-2019 Family History Name Dates Details [...] (finding) Vital Signs Date Test Result Details [id number] Systolic blood pressure 105 mm[Hg] Status: Comments: Location: LUE; Position: Sitting Diastolic blood pressure 65 mm[Hg] Status: Comments: Location: LUE; Position: Sitting Body height 63 in Status: Weight 161 lb Status: Body mass index (BMI) [Ratio] 28.52 kg/m2 Status: Body surface area Derived from formula 1.76 m2 Status: Body temperature 97.3 f Status: Comments: Method: Temporal Heart Rate 104 /min Status: O2 SAT 100 % Status: :31 Physical Findings 5 Status: Comments: PHQ-9 Adult Depression Screening :39 Systolic blood pressure 120 mm[Hg] Status: Comments: [...] Goals not documented Planned Encounters Appointment; GERSON BRWON M.D. On: 31-Jan-2020 10:00 Appointment; AMANDA WILKINS M.D. On: 20-Mar-2020 9:00 Instructions Name Dates Details Instructions not documented Encounters Appointment; BRANDY WASHINGTON M.D. Encounter Diagnosis: Problem [...] Diagnosis: Problem not documented On: 29-Nov-2019 9:00 Appointment; GERSON BROWN M.D. Encounter Diagnosis: Problem not documented On: 06-Dec-2019 10:00
--- OUTSIDE RECORDS SUMMARY | 2020-01-18 12:54 | XMS REPORT | Summary of Care ---
Author Author [facility] Address [address] [place] [address] Phone Unavailable Care Team Providers Care Pathology Assistant Name Role Phone AYLA Phillips, CM Unavailable [...] FONG, COLTON Chung Unavailable Unavailable SAMSON FONG [place], REBECCA Salvador Unavailable Unavailable MAYCOL THRASHER, CHIARA [...] WILKINS M.D. * Start : 24-Nov-2017 Active Linzess 145 MCG Oral Capsule TAKE 1 CAPSULE DAILY * Quantity: 30 Refills: 0 LORRAINE CARTER APRN * Start : 31-Jul-2017 Active tiZANidine HCl - 4 MG Oral Capsule TAKE 2 CAPSULE BEDTIME * Quantity: 180 Refills: 1 CM AGUILA M.D. * Start : 23-Aug-2017 Active Atorvastatin Calcium 40 MG Oral Tablet TAKE ONE TABLET BY MOUTH EVERY NIGHT AT BEDTIME * Quantity: 90 Refills: 1 AMANDA WILKINS M.D. * Start : 08-Mar-2017 Active OneTouch Delica Lancets 33G Check BG 2x a day * Quantity: 200 Refills: 4 AMANDA WILKINS M.D. * Start : 24-Nov-2017 Active Replens Vaginal Gel APPLY NEEDED. * Quantity: 12 Refills: 2 NATALIE GLASS M.D. * Start : 10-Jan-2018 Active 8 x 6.7 GM Box Pen [place] 32G X 4 MM 1 a day [...] Start : 16-Jan-2018 Active 70 GM Tube OneTouch Verio In Vitro Strip CHECK TWICE [...] AGUILA M.D. * Start : 28-Jun-2019 Active Vyvanse 60 MG Oral Capsule TAKE ONE CAPSULE BY MOUTH DAILY * Quantity: 30 Refills: 0 GERSON BROWN M.D. * Start : 07-Dec-2018 Active Vitamin D3 Super Strength 50 MCG (2000 UT) Oral Tablet TAKE ONE (1) TABLET(S) BY MOUTH ONCE A DAY. * Quantity: 90 Refills: 3 AMANAD WILKINS M.D. * Start : 29-Nov-2019 Active Vitamin D (Ergocalciferol) 1.25 MG (02908 UT) Oral Capsule 1 capsule weekly per oncologist * Refills: 0 AMANDA WILKINS M.D. * Start : 29-Nov-2019 Active Synjardy XR 12.5-1000 MG Oral Tablet Extended Release 24 Hour TAKE 2 TABLETS A DAY DIRECTED * Quantity: 60 Refills: 4 AMANDA WILKINS M.D. * Start : 24-Nov-2017 Active Saxenda 18 MG/3ML Subcutaneous Solution Pen-injector INJECT 3MG SUBCUTANEOUSLY ONCE A DAY * Quantity: 3 Refills: 1 AMANDA WILKINS M.D. * Start : 24-Nov-2017 Active 5 x 3 ML Pen Allergies and Adverse Reactions Name Dates Details [...] Quadrivalent 0.5 ML Intramuscular Suspension Lot #: [id number] on: 24-Jul-2014 Influenza Lot #: [id number] on: 05-Jun-2015 Fluzone Quadrivalent 0.5 ML Intramuscular Suspension Lot #: [id number] on: 30-Jun-2017 Fluzone Quadrivalent 0.5 ML Intramuscular Suspension Prefilled Syringe Lot #: [id number] on: 25-Jun-2018 Fluzone Quadrivalent 0.5 ML Intramuscular Suspension Lot #: [id number] on: 28-Jun-2019 Family History Name Dates Details [...] (finding) Vital Signs Date Test Result Details :39 Systolic blood pressure 120 mm[Hg] Status: [...]
--- OUTSIDE RECORDS SUMMARY | 2020-01-18 12:54 | XMS REPORT | Summary of Care ---
Author Author KEVIN Phillips, GERSON Membreno Unknown Address Unknown Phone Unavailable Care Team Providers Care Mold Mover Name Role Phone AYLA Phillips, CM Unavailable Unavailable FRANKY Phillips, AMANDA Unavailable Unavailable EMMA OQUENDO, LORRAINE Unavailable Unavailable KEVIN Phillips, GERSON Unavailable Unavailable QUAN Phillips, NATALIE Unavailable Unavailable AYLA FONG, CM Chung Unavailable Unavailable FRANKY FONG, AMANDA Unavailable Unavailable KEVIN FONG, GERSON Aguilera Unavailable Unavailable Christian DDS, Rebecca Unavailable Unavailable [...] Active 5 x 3 ML Pen Pen [place] 32G X 4 MM 1 a day [...] Capsule 1 capsule tid * Refills: 0 AMANAD WILKINS M.D. * Start : 21-May-2018 Active [...] 29-Nov-2019 Active Vitamin D (Ergocalciferol) 1.25 MG (31262 UT) Oral Capsule 1 capsule weekly per [...] Quadrivalent 0.5 ML Intramuscular Suspension Lot #: [id number] on: 24-Jul-2014 Influenza Lot #: [id number] on: 05-Jun-2015 Fluzone Quadrivalent 0.5 ML Intramuscular Suspension Lot #: [id number] on: 30-Jun-2017 Fluzone Quadrivalent 0.5 ML Intramuscular Suspension Prefilled Syringe Lot #: [id number] on: 25-Jun-2018 Fluzone Quadrivalent 0.5 ML Intramuscular Suspension Lot #: [id number] on: 28-Jun-2019 Family History Name Dates Details [...] (finding) Vital Signs Date Test Result Details [id number] Systolic blood pressure 105 mm[Hg] Status: Comments: [...] /min Status: O2 SAT 100 % Status: :39 Systolic blood pressure 120 mm[Hg] Status: [...] Planned Encounters Appointment; GERSON BROWN M.D. On: 31-Jan-2020 10:00 Appointment; AMANDA WILKINS M.D. On: 20-Mar-2020 9:00 Planned Medications Vyvanse 60 MG Oral Capsule TAKE ONE CAPSULE BY MOUTH DAILY Ordered: 15-Dec-2019 Active Interventions Provided Medication Changes* buPROPion HCl ER (XL) 150 MG Oral Tablet Extended Release 24 Hour - Renew * Venlafaxine HCl ER 75 MG Oral Capsule Extended Release 24 Hour - Renew Plan* Discussed diagnosis, differential diagnosis, co morbidities, bio psychosocial factors, predisposing, precipitating and maintaining symptoms For her ADD she will take Vyvanse 60mg po qdaily * For her depression she will take Wellbutrin ER 150 ER one tab daily along with Venlafaxine 75 ER po 3 tab daily. * Return in 2 month for symptom evaluations. Discussion/Summary* Progress made toward Goal significant progress. * Discussed the following with patient/family/other Safety issues, Patient understands and will comply. Bio-psychosocial factors. Co-Morbidities. Differential diagnosis. Emergency treatment. Maintaining symptoms. Predisposing symptoms. Precipitating symptoms. Safety plan. Current medication(s). Risks/benefits. Side effects. Target symptoms. Treatment plan. Diagnosis. follow-up 2 month PT is high functioning with good insight. Instructions Name Dates Details Instructions not documented [...] Problem not documented On: 22-Aug-2019 8:30 Appointment; MANSOUR, COLTON, M.D. Encounter Diagnosis: Problem not documented On: 03-Oct-2019 10:30 Appointment; AMANDA WILKINS M.D. Encounter Diagnosis: Problem not documented On: 29-Nov-2019 9:00 Appointment; GERSON BROWN M.D. Encounter Diagnosis: Problem not documented On: 06-Dec-2019 10:00
--- OUTSIDE RECORDS SUMMARY | 2020-01-18 12:54 | XMS REPORT | Summary of Care ---
Author Author [facility] Address [address] [place] [address] Phone Unavailable Care Team Providers Care Coupon Clerk Name Role Phone AYLA Phillips, CM Unavailable Unavailable FRANKY Phillips, AMANDA Unavailable Unavailable EMMA OQUENDO, LORRAINE Unavailable Unavailable KEVIN Phillips, GERSON Unavailable Unavailable QUAN Phillips, NATALIE Unavailable Unavailable AYLA FONG, CM Chung Unavailable Unavailable FRANKY FONG, AMANDA Unavailable Unavailable KEVIN FONG, GERSON W Unavailable Unavailable Christian DDS, Rebecca Unavailable Unavailable QUAN FONG, NATALIE Romoe Unavailable Unavailable VIRGILIO FONG, COLTON Chung Unavailable [...] Active 5 x 3 ML Pen Pen [place] 32G X 4 MM 1 a day [...] 29-Nov-2019 Active Vitamin D (Ergocalciferol) 1.25 MG (23932 UT) Oral Capsule 1 capsule weekly per [...] Quadrivalent 0.5 ML Intramuscular Suspension Lot #: [id number] on: 24-Jul-2014 Influenza Lot #: [id number] on: 05-Jun-2015 Fluzone Quadrivalent 0.5 ML Intramuscular Suspension Lot #: [id number] on: 30-Jun-2017 Fluzone Quadrivalent 0.5 ML Intramuscular Suspension Prefilled Syringe Lot #: [id number] on: 25-Jun-2018 Fluzone Quadrivalent 0.5 ML Intramuscular Suspension Lot #: [id number] on: 28-Jun-2019 Family History Name Dates Details [...] (finding) Vital Signs Date Test Result Details [id number] Systolic blood pressure 105 mm[Hg] Status: Comments: [...] Planned Goals not documented Planned Encounters Appointment; AAMNDA WILKINS M.D. On: 20-Mar-2020 9:00 Instructions Name [...]
--- OUTSIDE RECORDS SUMMARY | 2020-01-18 12:54 | XMS REPORT | Summary of Care ---
Author Author KEVIN Phillips, GERSON Membreno Unknown Address Unknown Phone Unavailable Care Team Providers Care Supervisor Mold Yard Name Role Phone AYLA Phillips, CM Unavailable [...] Active 5 x 3 ML Pen Pen [place] 32G X 4 MM 1 a day [...] 29-Nov-2019 Active Vitamin D (Ergocalciferol) 1.25 MG (92692 UT) Oral Capsule 1 capsule weekly per [...] Quadrivalent 0.5 ML Intramuscular Suspension Lot #: [id number] on: 24-Jul-2014 Influenza Lot #: [id number] on: 05-Jun-2015 Fluzone Quadrivalent 0.5 ML Intramuscular Suspension Lot #: [id number] on: 30-Jun-2017 Fluzone Quadrivalent 0.5 ML Intramuscular Suspension Prefilled Syringe Lot #: [id number] on: 25-Jun-2018 Fluzone Quadrivalent 0.5 ML Intramuscular Suspension Lot #: [id number] on: 28-Jun-2019 Family History Name Dates Details [...] (finding) Vital Signs Date Test Result Details [id number] Systolic blood pressure 105 mm[Hg] Status: Comments: [...] Capsule Extended Release 24 Hour - Renew Instructions Name Dates Details Instructions [...]
--- OUTSIDE RECORDS SUMMARY | 2020-01-18 12:54 | XMS REPORT | Summary of Care ---
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 * Start : 08-Mar-2017 Active B-12 TR 1000 MCG Oral Tablet [...] Active 8 x 6.7 GM Box Pen [place] 32G X 4 MM 1 a day [...] DAILY * Quantity: 30 Refills: 0 OBONYANO FRUIT RANCHERLORRAINE * Start : 31-Jul-2017 Active Dale Hiio In Vitro Strip CHECK TWICE A DAY * Quantity: 2 Refills: 0 AMANDA WILKINS M.D. * Start : 24-Nov-2017 Active 100 Strip Box tiZANidine HCl - 4 MG Oral Capsule TAKE 2 CAPSULE BEDTIME * Quantity: 180 Refills: 1 CM AGUILA M.D. * Start : 23-Aug-2017 Active Ibuprofen 800 MG Oral Tablet TAKE [...] 29-Nov-2019 Active Vitamin D (Ergocalciferol) 1.25 MG (12386 UT) Oral Capsule 1 capsule weekly per [...] 24-Nov-2017 Active 5 x 3 ML Pen Vyvanse 60 MG Oral Capsule TAKE ONE CAPSULE BY MOUTH DAILY * Quantity: 30 Refills: 0 GERSON BROWN M.D. * Start : 15-Dec-2019 Active Venlafaxine HCl ER 75 MG Oral Capsule Extended Release 24 Hour TAKE 3 CAPSULES DAILY * Quantity: 270 Refills: 2 GERSON BROWN M.D. * Start : 16-Jul-2018 Active buPROPion HCl ER (XL) 150 MG Oral Tablet Extended Release 24 Hour TAKE 1 TABLET DAILY. * Quantity: 90 Refills: 3 KEVIN PhillipsGERSON * Start : 20-Aug-2018 Active Promethazine HCl - 12.5 MG Rectal Suppository INSERT 1 SUPPOSITORY EVERY 6 HOURS NEEDED FOR NAUSEA AND VOMITING. * Quantity: 12 Refills: 0 AYLA PhillipsCM * Start : 24-Dec-2019 Active Allergies and Adverse Reactions Name Dates [...] Quadrivalent 0.5 ML Intramuscular Suspension Lot #: [id number] on: 24-Jul-2014 Influenza Lot #: [id number] on: 05-Jun-2015 Fluzone Quadrivalent 0.5 ML Intramuscular Suspension Lot #: [id number] on: 30-Jun-2017 Fluzone Quadrivalent 0.5 ML Intramuscular Suspension Prefilled Syringe Lot #: [id number] on: 25-Jun-2018 Fluzone Quadrivalent 0.5 ML Intramuscular Suspension Lot #: [id number] on: 28-Jun-2019 Family History Name Dates Details [...] (finding) Vital Signs Date Test Result Details :04 Systolic blood pressure 105 mm[Hg] Status: Comments: [...] On: 20-Mar-2020 9:00 Interventions Provided Medication Changes* Promethazine HCl - 12.5 MG Rectal Suppository - Start Instructions Name Dates Details Instructions not documented [...]
--- OUTSIDE RECORDS SUMMARY | 2020-01-18 12:55 | XMS REPORT | Summary of Care ---
Author Author Katelyn Alicea M.A. Unknown Address [facility] Phone Unavailable Care Team Providers Care Construction Sales Representative Name Role Phone AYLA Phillips, CM Unavailable [...] FONG, COLTON Chung Unavailable Unavailable SAMSON FONG [place], REBECCA L Unavailable Unavailable MAYCOL LEYVA-Sav, CHIARA [...] Details Lisinopril 5 MG Oral Tablet TAKE ONE TABLET BY MOUTH ONCE DAILY. NEED OFFICE VISIT Quantity: 15 CM AGUILA M.D. * Start : 25-Nov-2014 [...] Active 8 x 6.7 GM Box Pen [place] 32G X 4 MM 1 a day [...] CAPSULE DAILY * Quantity: 30 Refills: 0 CHARITOYOUNG AZRALORRAINE * Start : 31-Jul-2017 Active OneTouch Verio [...] 29-Nov-2019 Active Vitamin D (Ergocalciferol) 1.25 MG (24553 UT) Oral Capsule 1 capsule weekly per [...] Quadrivalent 0.5 ML Intramuscular Suspension Lot #: [id number] on: 24-Jul-2014 Influenza Lot #: [id number] on: 05-Jun-2015 Fluzone Quadrivalent 0.5 ML Intramuscular Suspension Lot #: [id number] on: 30-Jun-2017 Fluzone Quadrivalent 0.5 ML Intramuscular Suspension Prefilled Syringe Lot #: [id number] on: 25-Jun-2018 Fluzone Quadrivalent 0.5 ML Intramuscular Suspension Lot #: [id number] on: 28-Jun-2019 Family History Name Dates Details [...] (finding) Vital Signs Date Test Result Details [id number] Systolic blood pressure 105 mm[Hg] Status: Comments: [...] On: 20-Mar-2020 9:00 Interventions Provided Medication Changes* Lisinopril 5 MG Oral Tablet - Renew Instructions Name Dates Details Instructions [...] not documented On: 05-Jun-2018 10:30 Appointment; AMANDA WLIKINS M.D. Encounter Diagnosis: Problem not documented On: [...]
--- OUTSIDE RECORDS SUMMARY | 2020-01-18 12:55 | XMS REPORT | Summary of Care ---
Author Author AYLA Phillips, CM Membreno Unknown Address Unknown Phone Unavailable Care Team Providers Care Labor Operator Name Role Phone AYLA Phillips, CM Unavailable Unavailable FRANKY Phillips, AMANDA Unavailable Unavailable EMMA OQUENDO, LORRAINE Unavailable Unavailable KEVIN Phillips, GERSON Unavailable Unavailable QUAN Phillips, NATALIE Unavailable Unavailable AYLA FONG, CM Chung Unavailable Unavailable FRANKY FONG, AMANDA Unavailable Unavailable KEVIN FONG, GERSON W Unavailable Unavailable Christian DDS, Rebecca Unavailable Unavailable QUAN FONG, NATALIE D Unavailable Unavailable VIRGILIO FONG, COLTON S Unavailable [...] MG Oral Tablet TAKE 1 TABLET DAILY Quantity: 90 CM AGUILA M.D. * Start [...] Active 5 x 3 ML Pen Pen [place] 32G X 4 MM 1 a day [...] 20 MG Oral Tablet Delayed Release TAKE ONE TABLET BY MOUTH ONCE A DAYneeds office visit * Quantity: 15 Refills: 0 CM AGUILA M.D. * Start : 28-Jun-2019 Active Vitamin D3 Super Strength 50 MCG (2000 UT) Oral Tablet TAKE ONE (1) TABLET(S) BY MOUTH ONCE A DAY. * Quantity: 90 Refills: 3 AMANDA WILKINS M.D. * Start : 29-Nov-2019 Active Vitamin D (Ergocalciferol) 1.25 MG (93062 UT) Oral Capsule 1 capsule weekly per oncologist * Refills: 0 AMANDA WILKINS M.D. * Start : 29-Nov-2019 Active Promethazine HCl - 12.5 MG Rectal Suppository INSERT 1 SUPPOSITORY EVERY 6 HOURS NEEDED FOR NAUSEA AND VOMITING. * Quantity: 12 Refills: 0 SONNY AGUILA M.D.IE * Start : 24-Dec-2019 Active Allergies and [...] Quadrivalent 0.5 ML Intramuscular Suspension Lot #: [id number] on: 24-Jul-2014 Influenza Lot #: [id number] on: 05-Jun-2015 Fluzone Quadrivalent 0.5 ML Intramuscular Suspension Lot #: [id number] on: 30-Jun-2017 Fluzone Quadrivalent 0.5 ML Intramuscular Suspension Prefilled Syringe Lot #: [id number] on: 25-Jun-2018 Fluzone Quadrivalent 0.5 ML Intramuscular Suspension Lot #: [id number] on: 28-Jun-2019 Family History Name Dates Details [...] (finding) Vital Signs Date Test Result Details [id number] Systolic blood pressure 105 mm[Hg] Status: Comments: [...] /min Status: O2 SAT 100 % Status: 06-Dec-20199:31 Physical Findings 5 Status: Comments: PHQ-9 Adult Depression Screening Results Date Description Value Details Results not [...] not documented On: 28-Jun-2019 16:00 Appointment; GERSON BORWN M.D. Encounter Diagnosis: Problem not documented On: [...]
--- OUTSIDE RECORDS SUMMARY | 2020-01-18 12:55 | XMS REPORT | Summary of Care ---
Author Author KEVIN Phillips, GERSON Membreno Unknown Address Unknown Phone Unavailable Care Team Providers Care Eyelet Operator Name Role Phone AYLA Phillips, CM [...] FONG [place], REBECCA L Unavailable Unavailable MAYCOL THRASHER, CHIARA [...] CAPSULE DAILY * Quantity: 30 Refills: 0 LORRIANE CARTER APRN * Start : 31-Jul-2017 Active [...] Active 5 x 3 ML Pen Pen [place] 32G X 4 MM 1 a day [...] 29-Nov-2019 Active Vitamin D (Ergocalciferol) 1.25 MG (29536 UT) Oral Capsule 1 capsule weekly per oncologist * Refills: 0 AMANDA WILKINS M.D. * Start : 29-Nov-2019 Active Promethazine HCl - 12.5 MG Rectal Suppository INSERT 1 SUPPOSITORY EVERY 6 HOURS NEEDED FOR NAUSEA AND VOMITING. * Quantity: 12 Refills: 0 CM AGUILA M.D. * Start : 24-Dec-2019 Active Allergies and [...] Quadrivalent 0.5 ML Intramuscular Suspension Lot #: [id number] on: 24-Jul-2014 Influenza Lot #: [id number] on: 05-Jun-2015 Fluzone Quadrivalent 0.5 ML Intramuscular Suspension Lot #: [id number] on: 30-Jun-2017 Fluzone Quadrivalent 0.5 ML Intramuscular Suspension Prefilled Syringe Lot #: [id number] on: 25-Jun-2018 Fluzone Quadrivalent 0.5 ML Intramuscular Suspension Lot #: [id number] on: 28-Jun-2019 Family History Name Dates Details [...] (finding) Vital Signs Date Test Result Details [id number] Systolic blood pressure 105 mm[Hg] Status: Comments: [...] On: 20-Mar-2020 9:00 Interventions Provided Medication Changes* Vyvanse 60 MG [...]
--- OUTSIDE RECORDS SUMMARY | 2020-01-18 12:55 | XMS REPORT | Summary of Care ---
Author Author [facility] Address [address] [place] [address] Phone Unavailable Care Team Providers Care Fermenter Helper Name Role Phone AYLA Phillips, CM Unavailable Unavailable FRANKY Phillips, AMANDA Unavailable Unavailable EMMA OQUENDO, LORRAINE Unavailable Unavailable KEVIN Phillips, GERSON Unavailable Unavailable QUAN Phillips, NATALIE Unavailable Unavailable AYLA FONG, CM Chung Unavailable Unavailable FRANKY FONG, AMANDA Unavailable Unavailable KEVIN FONG, GERSON W Unavailable Unavailable Christian MATOSS, Rebecca Unavailable Unavailable QUAN FONG, NATALIE Romeo Unavailable Unavailable VIRGILIO FONG, COLTON S Unavailable Unavailable SAMSON FONG [place], REBECCA Salvador Unavailable Unavailable MAYCOL THRASHER, CHIARA [...] CARTER APRN * Start : 31-Jul-2017 Active Saxenda 18 MG/3ML Subcutaneous Solution Pen-injector INJECT 3MG SUBCUTANEOUSLY ONCE A DAY * Quantity: 3 Refills: 1 AMANDA WILKINS M.D. * Start : 24-Nov-2017 Active 5 x 3 ML Pen Pen [place] 32G X 4 MM 1 a day [...] Start : 16-Jan-2018 Active 70 GM Tube Vyvanse 60 MG Oral Capsule TAKE ONE [...] 29-Nov-2019 Active Vitamin D (Ergocalciferol) 1.25 MG (34423 UT) Oral Capsule 1 capsule weekly per oncologist * Refills: 0 AMANDA WILKINS M.D. * Start : 29-Nov-2019 Active Promethazine HCl - 12.5 MG Rectal Suppository INSERT 1 SUPPOSITORY EVERY 6 HOURS NEEDED FOR NAUSEA AND VOMITING. * Quantity: 12 Refills: 0 CM AGUILA M.D. * Start : 24-Dec-2019 Active OneTouch Verio In Vitro Strip CHECK TWICE A DAY * Quantity: 2 Refills: 0 AMANDA WILKINS M.D. * Start : 24-Nov-2017 Active 100 Strip Box buPROPion HCl ER (XL) 150 MG Oral Tablet Extended Release 24 Hour TAKE 1 TABLET DAILY. * Quantity: 90 Refills: 3 GERSON BROWN M.D. * Start : 20-Aug-2018 Active Venlafaxine HCl ER 75 MG Oral Capsule Extended Release 24 Hour TAKE 3 CAPSULES DAILY * Quantity: 270 Refills: 2 GERSON BROWN M.D. * Start : 16-Jul-2018 Active Gabapentin 300 MG Oral Capsule 1 capsule tid * Refills: 0 AMANDA WILKINS M.D. * Start : 21-May-2018 Active Letrozole 2.5 MG Oral Tablet TAKE 1 TABLET DAILY. * Refills: 0 AMANDA WILKINS M.D. * Start : 21-May-2018 Active Synjardy XR 12.5-1000 MG Oral Tablet Extended Release 24 Hour TAKE 2 TABLETS A DAY DIRECTED * Quantity: 60 Refills: 4 AMANDA WILKINS M.D. * Start : 24-Nov-2017 Active OsvaldoTouch Dalia [place] 33G Check BG 2x a day * Quantity: 200 Refills: 4 AMANDA WILKINS M.D. * Start : 24-Nov-2017 Active B-12 TR 1000 MCG Oral Tablet Extended Release TAKE 1 TABLET DAILY DIRECTED. * Refills: 0 AMANDA WILKINS M.D. * Start : 24-Nov-2017 Active tiZANidine HCl - 4 MG Oral Capsule TAKE 2 CAPSULE BEDTIME * Quantity: 180 Refills: 1 CM AGUILA M.D. * Start : 23-Aug-2017 Active Allergies and Adverse Reactions Name Dates [...] Quadrivalent 0.5 ML Intramuscular Suspension Lot #: [id number] on: 24-Jul-2014 Influenza Lot #: [id number] on: 05-Jun-2015 Fluzone Quadrivalent 0.5 ML Intramuscular Suspension Lot #: [id number] on: 30-Jun-2017 Fluzone Quadrivalent 0.5 ML Intramuscular Suspension Prefilled Syringe Lot #: [id number] on: 25-Jun-2018 Fluzone Quadrivalent 0.5 ML Intramuscular Suspension Lot #: [id number] on: 28-Jun-2019 Family History Name Dates Details [...]
--- OUTSIDE RECORDS SUMMARY | 2020-01-18 12:55 | XMS REPORT | Summary of Care ---
Author Author Katelyn Alicea M.A. Unknown Address [facility] Phone Unavailable Care Team Providers Care School Business Manager Name Role Phone AYLA Phillips, CM [...] FONG, COLTON Chung Unavailable Unavailable SAMSON FONG [place], REBECCA L Unavailable Unavailable MAYCOL LEYVA-Sav, CIHARA Unavailable Unavailable Unavailable Unavailable Functional Status Name [...] Active 5 x 3 ML Pen Pen [place] 32G X 4 MM 1 a day [...] 29-Nov-2019 Active Vitamin D (Ergocalciferol) 1.25 MG (57194 UT) Oral Capsule 1 capsule weekly per [...] Quadrivalent 0.5 ML Intramuscular Suspension Lot #: [id number] on: 24-Jul-2014 Influenza Lot #: [id number] on: 05-Jun-2015 Fluzone Quadrivalent 0.5 ML Intramuscular Suspension Lot #: [id number] on: 30-Jun-2017 Fluzone Quadrivalent 0.5 ML Intramuscular Suspension Prefilled Syringe Lot #: [id number] on: 25-Jun-2018 Fluzone Quadrivalent 0.5 ML Intramuscular Suspension Lot #: [id number] on: 28-Jun-2019 Family History Name Dates Details [...] On: 20-Mar-2020 9:00 Interventions Provided Medication Changes* Pantoprazole Sodium 20 MG Oral Tablet Delayed Release - Renew Instructions Name Dates Details Instructions [...]
--- OUTSIDE RECORDS SUMMARY | 2020-01-18 12:56 | XMS REPORT | Summary of Care ---
Author Author [facility] Address [address] [place] [address] Phone Unavailable Care Team Providers Care Brass Wind Instruments Tube Bender Name Role Phone AYLA Phillips, CM Unavailable [...] FONG, COLTON S Unavailable Unavailable SAMSON FONG [place], REBECCA Salvador Unavailable Unavailable MAYCOL THRASHER, CHIARA [...] Active 5 x 3 ML Pen Pen [place] 32G X 4 MM 1 a day [...] 29-Nov-2019 Active Vitamin D (Ergocalciferol) 1.25 MG (62934 UT) Oral Capsule 1 capsule weekly per [...] Quadrivalent 0.5 ML Intramuscular Suspension Lot #: [id number] on: 24-Jul-2014 Influenza Lot #: [id number] on: 05-Jun-2015 Fluzone Quadrivalent 0.5 ML Intramuscular Suspension Lot #: [id number] on: 30-Jun-2017 Fluzone Quadrivalent 0.5 ML Intramuscular Suspension Prefilled Syringe Lot #: [id number] on: 25-Jun-2018 Fluzone Quadrivalent 0.5 ML Intramuscular Suspension Lot #: [id number] on: 28-Jun-2019 Family History Name Dates Details [...] (finding) Vital Signs Date Test Result Details [id number] Systolic blood pressure 105 mm[Hg] Status: Comments: [...]
--- OUTSIDE RECORDS SUMMARY | 2020-01-18 12:56 | XMS REPORT | Summary of Care ---
Author Author Katelyn Alicea M.A. Unknown Address [facility] Phone Unavailable Care Team Providers Care Machine Fur Cleaner Name Role Phone AYLA Phillips, CM Unavailable [...] FONG, COLTON Chung Unavailable Unavailable SAMSON FONG [place], REBECCA Salvador Unavailable Unavailable MAYCOL THRASHER, CHIARA [...] Active 5 x 3 ML Pen Pen [place] 32G X 4 MM 1 a day [...] 29-Nov-2019 Active Vitamin D (Ergocalciferol) 1.25 MG (91780 UT) Oral Capsule 1 capsule weekly per [...] Quadrivalent 0.5 ML Intramuscular Suspension Lot #: [id number] on: 24-Jul-2014 Influenza Lot #: [id number] on: 05-Jun-2015 Fluzone Quadrivalent 0.5 ML Intramuscular Suspension Lot #: [id number] on: 30-Jun-2017 Fluzone Quadrivalent 0.5 ML Intramuscular Suspension Prefilled Syringe Lot #: [id number] on: 25-Jun-2018 Fluzone Quadrivalent 0.5 ML Intramuscular Suspension Lot #: [id number] on: 28-Jun-2019 Family History Name Dates Details [...] Dates Details Instructions not documented Encounters Appointment; AMANDA WILKINS M.D. Encounter Diagnosis: Problem [...]
[2020-01-18] MEDS ORDERED: TETANUS/DIPHTHERIA TOX ADULT 0.5 ML SYR IM ONE (13:15)
[2020-01-18] MEDS ORDERED: EFFEXOR XR150 MG (13:31)
[2020-01-18] MEDS ORDERED: WELLBUTRIN SR150 MG (13:31)
[2020-01-18] MEDS ORDERED: LETROZOLE2.5 MG (13:31)
[2020-01-18] MEDS ORDERED: SYNJARDY XR 251 EACH (13:31)
[2020-01-18] MEDS ORDERED: VYVANSE60 MG (13:31)
[2020-01-18] MEDS ORDERED: LISINOPRIL2.5 MG PO (13:31)
--- NOTE | 2020-01-18 13:46 | Diagnostic Imaging Report ---
Exam: Facial radiographs-4 views Clinical History: Fall. Comparison: None. Findings: No evidence of acute displaced fracture or malalignment. The paranasal sinuses are clear. Dental hardware is noted. Impression: No acute radiographic abnormality. Signed by: Dr. Lindsey Menezes MD on 01/18/2020 1:43 PM
--- NOTE | 2020-01-18 13:48 | Diagnostic Imaging Report ---
Exam: Right wrist radiographs - 3 views History: Fall. Comparison: None. Findings/Impression: No evidence of acute fracture or malalignment. Mild soft tissue edema in the wrist and proximal hand. Signed by: Dr. Lindsey Menezes MD on 01/18/2020 1:45 PM
[2020-01-18] MEDS ORDERED: BACITRACIN ZINC 0.9GM TP ONE (13:49)
--- NOTE | 2020-01-18 14:05 | Diagnostic Imaging Report ---
Exam: Right elbow radiographs-3 views History: Status post fall. Comparison: None. Findings/Impression: No evidence of acute fracture or malalignment. Moderate elbow joint effusion. Recommend repeat radiographs in 7-10 days to assess for occult fracture. Signed by: Dr. Lindsey Menezes MD on 01/18/2020 2:02 PM
[2020-01-18] MEDS ORDERED: TETANUS/DIPHTHERIA TOX ADULT 0.5 ML SYR ONE (14:07)
[2020-01-18 14:19] VITALS: BP 133/81
[2020-01-18] MEDS ORDERED: NAPROSYN500 MG PO (14:19)
[2020-01-18] MEDS ORDERED: KEFLEX500 MG PO (14:19)
== END 2020-01-18 14:28 | disposition home or self-care (01) ==
LOC: FSED 12:49
DX: S01.81XA Laceration without foreign body of other part of head, initial encounter (principal); S53.431A Radial collateral ligament sprain of right elbow, initial encounter; S63.521A Sprain of radiocarpal joint of right wrist, initial encounter; W01.0XXA Fall on same level from slipping, tripping and stumbling without subsequent striking against object, initial encounter; Y92.481 Parking lot as the place of occurrence of the external cause; E11.9 Type 2 diabetes mellitus without complications; Z85.3 Personal history of malignant neoplasm of breast
CPT/HCPCS: 70140; 90471; 90714; 96372; 99283